=== PATIENT | female | born 1980 | race African-American/Black ===

== ENCOUNTER 2019-12-27 20:14 | Emergency (ER) | payer MEDICAID, BC ==
[~2019-12-27] VITALS: Ht 149.9 cm; Wt 104.5 kg
[~2019-12-27 20:14] MED LIST: ADIPEX-P37.5 MG PO; HYDROCODON-ACE1 EAC7 PO; IBUPROFEN600 MG PO; TOPAMAX50 MG PO
[2019-12-27 20:17] VITALS: Ht 149.9 cm; Wt 104.5 kg
[2019-12-27] MEDS ORDERED: PROAIR HFA8.5 G1 INH (20:19)
[2019-12-27 22:04] LABS: BASOPHILS 0.3 % (0-2); EOSINOPHILS 6.4 % (0-7); HEMATOCRIT 40.5 % (36.0-48.0); IMMATURE GRANULOCYTES 0.3 % (0-5); LYMPHOCYTES 22.2 % (15-50); MCH 30.4 pg (26.0-34.0); MCHC 32.1 g/dL (31.0-37.0); MCV 94.8 fL (80.0-100.0); MEAN PLATELET VOLUME 10.5 fL (7.4-10.4); NEUTROPHILS 65.8 % (40-80); RBC 4.27 10x6/uL (4.00-5.40); RDW 12.7 % (11.5-14.5); WBC 7.8 10x3/uL (4.8-10.8)
[2019-12-27 22:11] LABS: PLATELET COUNT 275 10x3/uL (130-400)
[2019-12-27 22:14] LABS: APTT 27.7 SECONDS (22.8-39.4); INR 1.01 (0.85-1.17); PROTIME 13.2 SECONDS (11.6-15.0)
[2019-12-27 22:15] LABS: D-DIMER-QUANTITATIVE 0.29 ug/mLFEU (0.20-0.54)
[2019-12-27 22:20] LABS: CALC OSMOLALITY 279 mosm/kg (275-300); CALCIUM 9.1 mg/dL (8.5-10.1); CARBON DIOXIDE 28.6 mmol/L (21.0-32.0); CHLORIDE - SERUM 106 mmol/L (98-107); CREATININE - SERUM 0.9 mg/dL (0.6-1.3); GLUCOSE 105 mg/dL (74-106); POTASSIUM - SERUM 3.7 mmol/L (3.5-5.1); SODIUM 142 mmol/L (136-145); UREA NITROGEN 5 mg/dL (7-18); eGFR NON AFRICAN AMERICAN 75 mL/min (90-120)
[2019-12-27 22:35] LABS: ALBUMIN 3.2 g/dL (3.4-5.0); ALKALINE PHOSPHATASE 80 U/L (30-120); ALT (SGPT) 10 U/L (10-68); BILIRUBIN - TOTAL 0.16 mg/dL (0.2-1.3); CKMB 0.3 U/L (0.0-3.6); CREATINE KINASE 70 UL (21-215); PRO BNP 70 pg/mL (0-125)
[2019-12-27 22:36] LABS: TROPONIN-I < 0.017 ng/mL (0.000-0.060)
[2019-12-27] MEDS ORDERED: ZPAK PO (23:28)
[2019-12-27] MEDS ORDERED: STERAPRED DS 1010 MG PO (23:28)
[2019-12-27 23:50] VITALS: BP 130/84
== END 2019-12-27 23:55 | disposition home or self-care (01) ==
LOC: D.ER 20:14
PROVIDERS: Family Medicine
DX: J45.901 Unspecified asthma with (acute) exacerbation (principal)